=== PATIENT | male | born 1995 | race Caucasian/White ===

== ENCOUNTER → 2017-03-19 | Outpatient (CLI) | payer OTHER | LOC: COL.RAD 13:29 | DX: M25.521 Pain in right elbow (principal) | CPT/HCPCS: A9585; Q9967 ==

== ENCOUNTER → 2018-02-13 | Outpatient (CLI) | payer OTHER | LOC: COL.RAD 13:50 | DX: S53.441A Ulnar collateral ligament sprain of right elbow, initial encounter (principal); S56.211A Strain of other flexor muscle, fascia and tendon at forearm level, right arm, initial encounter | CPT/HCPCS: A9585; Q9967 ==